=== PATIENT | female | born 1980 | race Two or more races ===

== ENCOUNTER 2019-02-13 11:56 | Outpatient (CLI) | payer OTHER ==
[~2019-02-13 11:56] MED LIST: CLARITIN10 MG PO; FLONASE16 GM NS; GILTUSS TR TAB1 EACH PO; LEVAQUIN500 MG PO; TESSALON PERLE100 MG PO; TOBREX5 ML OP; ZITHROMAX TRI-500 MG PO; ZYRTEC10 MG PO
== END 2019-02-13 12:17 | disposition home or self-care (01) ==
LOC: SONOGRAMA 11:56
DX: M75.81 Other shoulder lesions, right shoulder (principal)

== ENCOUNTER 2019-11-29 07:34 | Emergency (ER) | payer OTHER ==
[~2019-11-29] VITALS: Ht 162.6 cm; Wt 56.7 kg
[2020-01-10] MEDS ORDERED: DICLOFENAC POTA50 MG PO (18:00)
[2020-01-10] MEDS ORDERED: SKELAXIN800 MG PO (18:00)
== END 2019-11-29 14:13 | disposition home or self-care (01) ==
LOC: ER 07:34
DX: R07.89 Other chest pain (principal); K52.89 Other specified noninfective gastroenteritis and colitis; Z20.828 Contact with and (suspected) exposure to other viral communicable diseases

== ENCOUNTER 2021-01-22 14:30 | Outpatient (CLI) | payer OTHER ==
[~2021-01-22 14:30] MED LIST changes: +DICLOFENAC POTA50 MG PO; +SKELAXIN800 MG PO
== END 2021-01-22 14:45 | disposition home or self-care (01) ==
LOC: PPH VACUNA 14:30
PROVIDERS: ATTEND Emergency Medicine Pediatric Emergency Medicine
DX: Z23 Encounter for immunization (principal)

== ENCOUNTER 2023-03-03 08:55 | Outpatient (CLI) | payer OTHER | END 2023-03-03 08:57 | disposition home or self-care (01) | LOC: NUCLEAR 08:55 | PROVIDERS: ATTEND Internal Medicine Sports Medicine | DX: I10 Essential (primary) hypertension (principal); R07.89 Other chest pain ==

== ENCOUNTER 2024-06-15 11:02 | Outpatient (CLI) | payer OTHER | END 2024-06-15 11:10 | disposition home or self-care (01) | LOC: MAMO-SONO 11:02 | PROVIDERS: ATTEND Obstetrics & Gynecology | DX: N60.09 Solitary cyst of unspecified breast (principal); Z12.31 Encounter for screening mammogram for malignant neoplasm of breast ==